=== PATIENT | female | born 1940 | race Caucasian/White ===

== ENCOUNTER 2016-06-09 01:05 | Day surgery (SDC) | payer MEDICARE ==
[2016-06-09] VITALS (15 sets, daily range): BP systolic 141–176; BP diastolic 68–89; PULSE 57–73; RESP 12–18; O2SAT 97–99
[~2016-06-09] VITALS: Ht 167.6 cm; Wt 86.9 kg
[~2016-06-09 01:05] MED LIST: ASPI-973 PO; LEVO100C2 PO; LOSA25TA21 PO; OMEP20CA11 PO; SIMV20TA4 PO
[2016-06-09] MEDS ORDERED: 0.9% Sodium Chloride 1,000 ML IV ONE (06:30)
[2016-06-09 07:13] LABS: BASOPHILS % (AUTO) 0.5 % (0-3); EOSINOPHILS % (AUTO) 11.8 % (0-5); MONOCYTES % (AUTO) 7.5 % (4-12); Mean Corpuscular Hemoglobin 30.5 pg (27.0-35.0); Mean Corpuscular Volume 91.9 fL (81-100); NEUTROPHILS % (AUTO) 47.5 % (40-74); Platelet Count 209 bil/L (150-400)
[2016-06-09] MEDS ORDERED: ASPI325T32 PO (07:27)
[2016-06-09 07:30] LABS: INR 0.98 ratio
[2016-06-09] MEDS ORDERED: UBID1CAP58 PO (07:31)
[2016-06-09] MEDS ORDERED: IRON18TA PO (07:31)
[2016-06-09] MEDS ORDERED: ASCO-294 PO (07:31)
[2016-06-09] MEDS ORDERED: CHOL2400 MC (07:31)
[2016-06-09] MEDS ORDERED: VITA400C64 PO (07:31)
[2016-06-09] MEDS ORDERED: CALC600T12 PO (07:31)
[2016-06-09] MEDS ORDERED: Heparin 1,000 Units/500 mL NS Premix IV ONE (08:26)
[2016-06-09] MEDS ORDERED: Heparin 5,000 Unit/mL Inj ONE (08:26)
[2016-06-09] MEDS ORDERED: 0.9% Sodium Chloride 1,000 ML ONE (08:26)
[2016-06-09] MEDS ORDERED: fentaNYL-PF 50 mCg/mL 2 mL Inj ONE ×2 (09:01→09:41)
[2016-06-09] MEDS ORDERED: Nitroglycerin 50,000 mcg/250 mL D5W Premix IV ONE (09:23)
[2016-06-09] MEDS ORDERED: Heparin 1,000 Unit/mL 10 mL Inj ONE ×2 (09:29→10:23)
[2016-06-09] MEDS ORDERED: Labetalol 5 mg/mL 20 mL Inj ONE (09:49)
--- NOTE | 2016-06-09 12:00 | CS94 ---
[address] [address] DIAGNOSTIC CARDIAC CATHETERIZATION PATIENT: PAUL RICHEY I : 1940 MR#: [id number] ADMIT: 06/09/2016 JOB ID: [id number] SERVICE DATE: Thursday, June 09, 2016 PROCEDURE NOTE - CARDIAC CATHETERIZATION LABORATORY: TENANT SELECTOR: Mumtaz Walton MD PROCEDURES: Percutaneous coronary intervention (PCI): A stent of proximal left anterior descending (LAD) - JAYLAN (drug-eluting stent); Xience 3.25 x 15 mm. CLINICAL DETAILS: This 75-year-old woman with hypertension, hyperlipidemia, and remote cigarette smoking is in the catheterization laboratory after diagnostic coronary angiogram done by Dr. Fortune after she presented with chest discomfort and had an abnormal noninvasive study referable to the anterior wall. Diagnostic coronary angiogram shows a severe 95% focal proximal LAD lesion. PCI has been recommended. PROCEDURAL DETAILS: The patient was in the catheterization lab, prepped and draped and on the catheterization table after diagnostic coronary angiogram with a 10 cm 6-Citizen [place] side-arm sheath in place in the right common femoral artery. For the intervention, she received ASA 324 mg chewed; and heparin IV bolus to achieve therapeutic ACT; and loading dose of Plavix 600 mg p.o.; and NTG IC was used as needed during the procedure. PCI PROXIMAL LAD: A 6-Citizen [place] JL 3.5 guide catheter was used for the intervention. Initially, a JL-4 guide did not work as well given her very short left main. The lesion was crossed with a BMW wire - 0.014 inches x 190 cm - which was placed distally in the LAD. PREDILATATION: The focal 95% proximal LAD target lesion was predilated with a Trek balloon - 2.5 x 15 mm - inflated to 8 atmospheres. It was then further pre-dilated with a Trek balloon - 3.0 x 15 mm - to 8 atmospheres; which is necessary for the stent to cross. STENT: The lesion was treated with a Xience JAYLAN - 3.25 x 15 mm - deployed across the lesion at 18 atmospheres. Completion angiogram showed an excellent angiographic result with no residual lesion; FENR-3 flow; and no angiographic complication evident. Procedure without difficulty. Patient tolerated procedure well. No complications. A previous side-arm sheath angiogram had shown adequate access in the right common femoral artery for closure device. Arterial hemostasis was obtained without difficulty using a StarClose clip. The patient was transferred from the catheterization laboratory chest-pain free and in stable condition to the [facility] unit for ongoing care. I discussed the procedure with Cardiology, Dr. Fortune; and with the patient (no family present). CONCLUSIONS: PCI - JAYLAN of a 95% focal proximal LAD lesion RECOMMENDATIONS: 1. ECASA - indefinitely. 2. Plavix - plan one year if well tolerated, including ongoing cardiology followup. I discussed with the patient the critical importance of mandatory Plavix; and not to stop for any reason without immediate Cardiology consultation.
[2016-06-09] MEDS ORDERED: Lidocaine 1%-Epi 1:100,000 20 mL Inj ONE (13:25)
--- NOTE | 2016-06-09 13:54 | CS94 ---
[place] [id number] DIAGNOSTIC CARDIAC CATHETERIZATION PATIENT: PAUL RICHEY I : 1940 MR#: [id number] ADMIT: 06/09/2016 JOB ID: [id number] SERVICE DATE: 06/09/2016 PROCEDURES PERFORMED: 1. Retrograde left heart catheterization. 2. Selective left and right coronary angiography. 3. Left ventricular hemodynamics. 4. Right groin angiography INDICATION: Patient is a delightful, 75-year-old woman with known history of atrial fibrillation, hypertension. Was seen in the office for new onset chest pains. Stress test was performed which demonstrated reversible perfusion defect involving anterior wall. Given her symptoms and abnormal stress test, patient was brought to laboratory immunologist for coronary angiography and possible intervention. CONSENT: The patient was explained risks, benefits, and alternatives of the procedure. Informed signed consent was obtained and placed in the chart. PROCEDURE: The patient was brought to the cath laboratory and placed on the cath table. Both groins were prepped and draped in the usual sterile manner. One percent lidocaine was infiltrated in the right groin area. A 6-[place] arterial sheath was placed in the right femoral artery using a standard modified Seldinger technique. FL4 catheter was used to engage the left main coronary artery. Multiple views of the left coronary artery were obtained in multiple projections. FR4 catheter was used to engage the right coronary artery and angiogram of the nondominant right coronary artery was obtained. Subsequently, a pigtail catheter was advanced and placed in the left ventricle. Left ventricular hemodynamics were obtained. Subsequently, care of the patient was transferred over to Dr. Walton. FINDINGS: The left main coronary artery is a wide-caliber vessel which trifurcates into left anterior descending artery, left circumflex coronary artery, and ramus intermedius coronary artery. The proximal LAD demonstrates a focal, tight, more than 80% to 90% stenosis noted. Mid LAD and distal LAD demonstrate mild luminal irregularities. The diagonal branches coming off the LAD demonstrate no significant disease. The ramus intermedius again demonstrates luminal irregularities but free of any significant stenosis. The left circumflex coronary artery is a dominant vessel and is free of any significant disease. The right coronary artery is a nondominant vessel with no significant disease. IMPRESSION: 1. High-grade stenosis of the proximal left anterior descending. 2. Elevated left ventricular end-diastolic pressure of 20-22 mmHg. PLAN: The care of the patient was transferred over to Dr. Mumtaz Walton for percutaneous intervention of the proximal LAD.
--- NOTE | 2016-06-09 14:37 | NUR ---
transfer to 2028 Pt transferred to 2028 after stable recovery post heart cath, VSS groin sift soft non tender, no signs of bleeding. Report given to Shanique Danielle RN. Family made aware of transfer.
[2016-06-09] MEDS ORDERED: Sodium Chloride LOK Flush 10 mL Syringe IVFLUSH PRN (15:25)
[2016-06-09] MEDS ORDERED: 0.9% Sodium Chloride 250 ML BOLUS IV PRN (15:25)
[2016-06-09] MEDS ORDERED: Ondansetron 2 mg/mL 2 mL Inj IVPUSH PRN (15:25)
[2016-06-09] MEDS ORDERED: 0.9% Sodium Chloride 400 ML (4 HRS) IV ONE (15:25)
[2016-06-09] MEDS ORDERED: Atropine 1 mg/10 mL (Code) Syringe IVPUSH PRN (15:25)
--- NOTE | 2016-06-09 17:32 | NUR ---
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 Right groin site is soft with no drainage or pain. The pt is ambulating, eating and voiding well. The POC is to DC home tomorrow.
[2016-06-10 00:03] VITALS: BP 154/86; PULSE 79; RESP 16; O2SAT 98
[2016-06-10 03:49] VITALS: BP 153/84; PULSE 71; RESP 16; O2SAT 97
[2016-06-10 05:39] LABS: Mean Corpuscular Hemoglobin 30.5 pg (27.0-35.0); Mean Corpuscular Volume 91.6 fL (81-100)
[2016-06-10 05:54] VITALS: PULSE 66
--- NOTE | 2016-06-10 06:52 | NUR ---
Groin Site/Tele Right groin site soft, non-tender. Small amount of sanguineous drainage present on dressing at start of shift; unchanged at each check. Tele: a-fib in the 70s. Continue to monitor.
[2016-06-10 08:44] VITALS: BP 148/96; PULSE 83; RESP 20; O2SAT 98
[2016-06-10 11:08] VITALS: PULSE 82
[2016-06-10] MEDS ORDERED: CLOP75TA28 PO (11:36)
[2016-06-10] MEDS ORDERED: CARV3.122 PO (11:36)
[2016-06-10] MEDS ORDERED: ASPI81TA3 PO (11:36)
--- NOTE | 2016-06-10 11:44 | PCM.DIMED ---
Discharge Instructions Date of Service Jun 10, 2016 Dates of Hospitalization 06/09/2016 Discharge Diagnosis Discharge Diagnosis Coronary artery disease Diet Heart Healthy Activity Other (Limit your activity until you follow up at [facility]. Wash the incision with mild soap and warm water. Take showers. Do not take baths or submerge the incision.) Call your provider Fever or Chills, Shortness of breath, Bleeding, Chest pain, Other (Pain not relieved by OTC pain medications, swelling,discharge or redness at the site if the incision.) Shantanu Shoemaker PA-C Jun 10, 2016 11:44
--- NOTE | 2016-06-10 13:34 | NUR ---
Discharge Pt. was discharged to home with at about 1310. Pt. took all her belongings with her and was given educational material on cath procedure as well as new prescriptions. Pt. was also instructed to follow up with Dr. Fortune on June 16 at 1130AM. Pt. stated she understood and would go to the appointment.Pt. IV DC'D x2 and intact, asymptomatic.
--- NOTE | 2016-06-12 15:47 | DIS ---
[address] [address] DISCHARGE SUMMARY PATIENT: PAUL RICHEY I : 1940 MR#: [id number] ADMIT: 06/09/2016 JOB ID: [id number] DIS: 06/10/2016 PROCEDURES: Left heart catheterization with the implantation of a drug-eluting stent in the proximal LAD. FINDINGS: 1. High-grade stenosis of the proximal left anterior descending artery. 2. Elevated left ventricular end-diastolic pressure of 20-22 mmHg. HOSPITAL COURSE: The patient is a delightful 75-year-old with a known history of atrial fibrillation and hypertension. She was seen in our office for chest pain. Stress test demonstrated a reversible perfusion defect involving the inferior wall. As such she was scheduled for the cath laboratory where the above-mentioned procedures were carried out. There were no complications. After the procedure, she was admitted to the [facility] for observation where she did well. At discharge, vitals were stable. Catheter entry site at the right groin was clean, dry and intact without signs of infection. There was a small hematoma and some bruising. There were +1 dorsalis pedis and posterior tibialis pulses bilaterally and no signs of circulatory compromise in the lower extremities. DISCHARGE MEDICATIONS: 1. Aspirin 81 mg. 2. Carvedilol 3.125 mg twice a day. 3. Clopidogrel 75 mg daily. 4. Vitamin C 500 mg daily. 5. Calcium carbonate 600 mg daily. 6. Vitamin D 2400 units daily. 7. Iron 65 mg daily. 8. Levothyroxine 100 mcg daily. 9. Losartan 50 mg daily. 10. Omeprazole 20 mg daily. 11. Simvastatin 20 mg daily. 12. Vitamin E 10, one capsule daily. DISPOSITION AND DISCHARGE INSTRUCTIONS: The patient was discharged to home with the following instructions. 1. Diet: Eat a heart healthy diet. 2. Activity: She was advised to limit her activity until she follows up at [facility], wash the incision with mild soap and warm water, take showers, and do not take baths or submerge the incision. 3. Call the provider if she experiences fevers or chills, shortness of breath, bleeding, chest pain, pain not relieved by [id number] pain medications, swelling, discharge or redness at the site of the incision.
== END 2016-06-10 13:10 | disposition home or self-care (01) ==
LOC: SOUO 01:05 → PCC 14:50 → SOUO 06-10 13:10
PROVIDERS: ATTEND Internal Medicine Cardiovascular Disease
DX: I25.10 Atherosclerotic heart disease of native coronary artery without angina pectoris (principal); I10 Essential (primary) hypertension; Z79.82 Long term (current) use of aspirin; I35.1 Nonrheumatic aortic (valve) insufficiency; E78.5 Hyperlipidemia, unspecified; Z87.891 Personal history of nicotine dependence; I48.91 Unspecified atrial fibrillation
CPT/HCPCS: 36415; 80048; 85025; 85027; 85610; 93005; 93458; 99152; 99153; C1725; C1760; C1769; C1874; C1887; C9600; J1644; J2250; J3010; J7030; Q9967